=== PATIENT | male | born 1970 | race Caucasian/White ===

== ENCOUNTER 2017-09-10 11:37 | Emergency (ER) | payer MEDICARE, MEDICAID ==
[~2017-09-10] VITALS: Ht 185.4 cm; Wt 78.9 kg
--- NOTE | 2017-09-10 12:14 | RAD ---
Chest, 2 views, 09/10/2017: History: Cough The heart size and pulmonary vascularity are normal. No pulmonary infiltrates are seen. There is no evidence of pleural fluid. IMPRESSION: No acute cardiopulmonary abnormality is detected.
--- NOTE | 2017-09-10 12:30 | PHYS DOC ---
General Chief Complaint: SHORTNESS OF BREATH Stated Complaint: fever Time Seen by MD: 11:53 Source: patient, family Exam Limitations: no limitations Problems: History of Present Illness Initial Comments Patient is a 47-year-old male brought to the ED by his mom with a complaint of cough and fever. Patient follows pain management chronic neck and back pain, saw Dr. [place] pain management this morning who sent the patient was febrile and recommended he come to the ED for evaluation. On arrival without any medications the patient is afebrile heart rate is 101 bpm patient smokes cigarettes prior to coming into the emergency department. Patient does say he's had a cough for the past 2 weeks productive with scant green sputum, he smokes marijuana and cigarettes but has not had prior asthma history. He denies any trouble breathing no chest pain fever chills sweats or body aches that he's noted. No nausea vomiting no head congestion or nasal discharge no sore throat. Timing/Duration: other Severity: mild Modifying Factors: improves with other Associated Symptoms: cough, fever/chills Allergies: Coded Allergies: No Known Drug Allergies (Unverified , 09/10/17) Past Medical History Medical History: other (muscular dystrophy, cataracts, chronic pain) Surgical History: noncontributory Social History Smoker: cigarettes Alcohol: none Drugs: marijuana Review of Systems Constitutional: see HPI Respiratory: see HPI Cardiovascular: denies chest pain, denies palpitations, denies syncope Gastrointestinal: denies diarrhea, denies nausea, denies vomiting Musculoskeletal: denies back pain, denies joint swelling, denies neck pain Psychiatric/Neurological: denies headache, denies numbness, denies paresthesia Physical Exam General Appearance: WD/WN, no apparent distress Ear, Nose, Throat: hearing grossly normal, normal ENT inspection, normal pharynx Neck: non-tender, supple Respiratory: other (faint wheeze with breath sounds no respiratory distress chest nontender) Cardiovascular: normal peripheral pulses, regular rate, rhythm Back: normal inspection, no CVA tenderness Neurologic/Psychiatric: alert, oriented x 3 Skin: normal color, warm/dry Orders, Labs, Meds PATIENT: NAHOMY CARLOS ACCOUNT: [id number] : 1970 LOCATION: ER AGE: 47 SEX: M EXAM STATUS: PRE ER ORD. PHYSICIAN: JIM MURRY DO REASON: cough PROCEDURE: CHEST PA & LATERAL Chest, 2 views, 09/10/2017: History: Cough The heart size and pulmonary vascularity are normal. No pulmonary infiltrates are seen. There is no evidence of pleural fluid. IMPRESSION: No acute cardiopulmonary abnormality is detected. DICTATED AND SIGNED BY: TREVON WU MD DATE: 09/10/17 1210 CC: ANGÉLICA LANZA MD; JIM MURRY DO ~ Patient rechecked after DuoNeb states he is breathing much more easily wheezing improved and with decreased cough and no shortness of breath Due to response of DuoNeb and duration of cough with fever over 2 weeks we'll treat with antibiotics. I discussed signs and symptoms to monitor as well as indications for urgent return to the orbit. I discussed cessation of smoking marijuana cigarettes. I discussed the departure instructions [id number] provided in written format see below. Patient and his mom expressed agreement and understanding with the treatment plan. Departure Time of Disposition: 13:30 Disposition: 01 HOME, SELF-CARE Diagnosis: bronchitis with bronchospasm Condition: GOOD Patient Instructions: Bronchospasm, Adult Additional Instructions: Avoid environmental allergens and extremes of temperature. [id number] Tylenol and ibuprofen as needed. Prescription: Z-Zhen, albuterol MDI with spacer Follow-up with your doctor in 10-14 days for recheck. At that time they may choose to check pre-and post peak flow measurements to determine whether underlying reactive airway disease may be present. Return to ED with new or changing symptoms. JIM MURRY DO Sep 10, 2017 12:30
[2017-09-10] MEDS ORDERED: IPRATRPIUM/ALBUTEROL 0.5/2.5MG 3 ML NEBU. NEB ONE (12:40)
[2017-09-10 12:47] VITALS: BP 120/50
[2017-09-10 13:09] LABS: INFLUENZA A PATIENT NEGATIVE (NEGATIVE); INFLUENZA B PATIENT NEGATIVE (NEGATIVE)
[2017-09-10] MEDS ORDERED: ALBU8.5H8 INH (13:29)
[2017-09-10] MEDS ORDERED: AZIT250T PO (13:29)
== END 2017-09-10 13:40 | disposition home or self-care (01) ==
LOC: ER 11:37
DX: J20.9 Acute bronchitis, unspecified (principal); F12.10 Cannabis abuse, uncomplicated; F17.210 Nicotine dependence, cigarettes, uncomplicated; G89.29 Other chronic pain
CPT/HCPCS: 71046; 87804; 94640; 99285; J7620

== ENCOUNTER → 2017-09-10 | Outpatient (CLI) | payer MEDICARE, MEDICAID ==
[~2017-09-10] MED LIST: ALBU8.5H8 INH; AZIT250T PO; BUPIVACAINE MPF 0.5% 30 ML VIAL. ONE
== END | disposition home or self-care (01) ==
LOC: SURG 10:16
PROVIDERS: ATTEND Anesthesiology Pain Medicine
DX: M79.1 Myalgia (principal); Z72.0 Tobacco use; Z72.89 Other problems related to lifestyle; M19.90 Unspecified osteoarthritis, unspecified site; Z98.890 Other specified postprocedural states
CPT/HCPCS: 20553; 99204; J3490

== ENCOUNTER → 2017-12-28 | Outpatient (CLI) | payer OTHER, MEDICAID ==
[~2017-12-28] MED LIST changes: +0.9 % SODIUM CHLORIDE 10 ML VIAL ONE; -BUPIVACAINE MPF 0.5% 30 ML VIAL. ONE; +DEXAMETHASONE SOD PHOS 4 MG/ML VIAL ONE; +IOHEXOL 300 MG/ML 50 ML VIAL. ONE; +LIDOCAINE 1% PF 30 ML VIAL. ONE
== END ==
LOC: SURG 13:27
PROVIDERS: ATTEND Anesthesiology
DX: M54.12 Radiculopathy, cervical region (principal); Z72.0 Tobacco use; Z72.89 Other problems related to lifestyle; F19.90 Other psychoactive substance use, unspecified, uncomplicated; Z87.39 Personal history of other diseases of the musculoskeletal system and connective tissue; Z98.890 Other specified postprocedural states
CPT/HCPCS: 64479; J1100; J2001; Q9967